=== PATIENT | male | born 1970 | race African-American/Black ===

== ENCOUNTER 2017-02-12 08:28 | Inpatient (IN) | payer OTHER ==
[2017-02-12 11:00] VITALS: BMI 23.7
--- NOTE | 2017-02-12 12:47 | HP ---
CIWA Score - CIWA Score Nausea/Vomitin Muscle Tremors: 3 Anxiety: 3 Agitation: 2 Paroxysmal Sweats: 1-Minimal Palms Moist Orientation: 0-Oriented Tacttile Disturbances: 2-Mild Itch/Numbness/Burn Auditory Disturbances: 2-Mild Harshness/Frighten Visual Disturbances: 2-Mild Sensitivity Headache: 2-Mild CIWA-Ar Total Score: 20 Admission ROS BHS - HPI Chief Complaint: i need help to stop drinking alcohol and cocaine Allergies/Adverse Reactions: Allergies Allergy/AdvReac Type Severity Reaction Status Date / Time No Known Allergies Allergy Verified 02/12/17 10:46 History of Present Illness: THIS 46 YEARS OLD MALE WITH ALCOHOL AND COCAINE DEPENDENCE Exam Limitations: No Limitations - Ebola screening Have you traveled outside of the country in the last 21 days: No Have you had contact with anyone from an Ebola affected area: No Have you been sick,other than usual withdrawal symptoms: No - Review of Systems Constitutional: Loss of Appetite, Malaise, Night Sweats, Changes in sleep, Weakness, Unintentional Wgt. Loss EENT: reports: Nose Congestion Respiratory: reports: No Symptoms reported Cardiac: reports: Palpitations GI: reports: Diarrhea, Nausea, Vomiting, Abdominal cramping : reports: No Symptoms Reported Musculoskeletal: reports: Back Pain, Muscle Pain Integumentary: reports: Dryness Neuro: reports: Headache, Tremors Endocrine: reports: No Symptoms Reported Hematology: reports: No Symptoms Reported Psychiatric: reports: Judgement Intact, Mood/Affect Appropiate, Orientated x3, Depressed Patient History - Patient Medical History Hx Anemia: No Hx Asthma: No Hx Chronic Obstructive Pulmonary Disease (COPD): No Hx Cancer: No Hx Cardiac Disorders: No Hx Congestive Heart Failure: No Hx Hypertension: No Hx Hypercholesterolemia: No Hx Pacemaker: No Hx Seizures: No Hx Dementia: No Hx Diabetes: No Hx Gastrointestinal Disorders: Yes (acid reflux) Hx Liver Disease: No Hx Genitourinary Disorders: No Hx Sexually Transmitted Disorders: No Hx Renal Disease (ESRD): No Hx Thyroid Disease: No Hx Human Immunodeficiency Virus (HIV): No (LAST 2006 NEGATIVE) Hx Hepatitis C: No Hx Depression: Yes (NO MEDICATION) Hx Suicide Attempt: No Hx Bipolar Disorder: No Hx Schizophrenia: No Other Medical History: NO SUICIDAL,NO HOMICIDAL - Patient Surgical History Past Surgical History: Yes Hx Neurologic Surgery: No Hx Cataract Extraction: No Hx Cardiac Surgery: No Hx Lung Surgery: No Hx Breast Surgery: No Hx Breast Biopsy: No Hx Abdominal Surgery: No Hx Appendectomy: No Hx Cholecystectomy: No Hx Genitourinary Surgery: No Hx Section: No Hx Orthopedic Surgery: No Other Surgical History: partial amputation, left middle finger AT AGE 14 Anesthesia Reaction: No - PPD History Previous Implant?: Yes Documented Results: Negative w/o proof Implanted On Prior [facility] Admission?: No PPD to be Administered?: Yes - Smoking Cessation Smoking history: Current every day smoker Have you smoked in the past 12 months: Yes Aproximately how many cigarettes per day: 10 Hx Chewing Tobacco Use: No Initiated information on smoking cessation: Yes 'Breaking Loose' booklet given: 02/12/17 - Substance & Tx. History Hx Alcohol Use: Yes Hx Substance Use: Yes Substance Use Type: Alcohol, Cocaine Hx Substance Use Treatment: Yes (DID NOT RECALL) - Substances Abused Crack Route: Smoking Frequency: 1-3 times last 30 days Amount used: $20 Age of first use: 17 Date of Last Use: 02/11/17 Alcohol-cognac/beer Route: Oral Frequency: Daily Amount used: 2 pts./1 case Age of first use: 17 Date of Last Use: 02/12/17 Family Disease History - Family Disease History Family Disease History: Other: Father (ALCOHOL), Mother (ALCOHOL,DECESED) Admission Physical Exam S - Vital Signs Vital Signs: Vital Signs - 24 hr 02/12/17 10:57 Temperature 96.4 F L Pulse Rate 71 Respiratory 20 Rate Blood Pressure 109/72 - Physical General Appearance: Yes: Moderate Distress, Tremorous, Irritable, Sweating, Anxious HEENTM: Yes: Normal ENT Inspection, Normocephalic, JUSTIN Respiratory: Yes: Lungs Clear, Normal Breath Sounds, No Respiratory Distress Neck: Yes: Within Normal Limits, Supple, Trachea in good position Breast: Yes: Within Normal Limits Cardiology: Yes: Within Normal Limits, Regular Rhythm, Regular Rate, S1, S2 Abdominal: Yes: Within Normal Limits, Normal Bowel Sounds, Non Tender, Flat, Soft Genitourinary: Yes: Within Normal Limits Back: Yes: Muscle Spasm Musculoskeletal: Yes: Back pain, Muscle Pain Extremities: Yes: Normal Range of Motion, Tremors Neurological: Yes: coordinator of online programs II-XII NML intact, Fully Oriented, Alert, Motor Strength 5/5 Integumentary: Yes: Dry Lymphatic: Yes: Within Normal Limits - Diagnostic (1) Alcohol dependence with uncomplicated withdrawal Current Visit: Yes Status: Acute (2) Depression Current Visit: Yes Status: Acute (3) Nicotine dependence Current Visit: Yes Status: Acute (4) Weight loss Current Visit: Yes Status: Acute Cleared for Admission [facility] - Detox or Rehab [facility] Level of Care: Medically Managed Detox Regimen/Protocol: Librium S Breath Alcohol Content Breath Alcohol Content: 0 Urine Drug Screen - Results Drug Screen Negative: No Urine Drug Screen Results: GUSTAVO-Cocaine
[2017-02-12] MEDS ORDERED: MENTHOL/PHENOL 1 EACH UD MM PRN (12:58)
[2017-02-12] MEDS ORDERED: chlordiazePOXIDE HCL 25 MG CAPSULE PO ONE (12:58)
[2017-02-12] MEDS ORDERED: hydrOXYzine PAMOATE 50 MG CAPSULE (FP) PO PRN (12:58)
[2017-02-12] MEDS ORDERED: chlordiazePOXIDE HCL 25 MG CAPSULE PO PRN (12:58)
[2017-02-12] MEDS ORDERED: ACETAMINOPHEN 325 MG TABLET (FP) PO PRN (12:58)
[2017-02-12] MEDS ORDERED: LOPERAMIDE HCL 2 MG CAPSULE PO PRN (12:58)
[2017-02-12] MEDS ORDERED: diphenhydrAMINE HCL 50 MG CAPSULE PO PRN (12:58)
[2017-02-12] MEDS ORDERED: IBUPROFEN 400 MG TABLET (FP) PO PRN (12:58)
[2017-02-12] MEDS ORDERED: MAGNESIUM CITRATE 300 ML BOTTLE PO PRN (12:58)
[2017-02-12] MEDS ORDERED: MAGNESIUM HYDROX 2400MG/30ML ORAL SUSPENSION 30 ML CUP PO PRN (12:58)
[2017-02-12] MEDS ORDERED: P-EPHED 60MG/TRIPROLIDI 2.5MG TABLET PO PRN (12:58)
[2017-02-12] MEDS ORDERED: guaiFENesin/D-METHORPHAN HB 10 ML UNIT-DOSE CUPS PO PRN (12:58)
[2017-02-12] MEDS ORDERED: NICOTINE POLACRILEX 2 MG GUM BC PRN (12:58)
[2017-02-12] MEDS ORDERED: MAG HYDROX/AL HYDROX/SIMETH 30 ML UNIT-DOSE CUP PO PRN (12:58)
[2017-02-12] MEDS: NICOTINE 21 MG/24 HOURS TOPICAL PATCH TD SCH (14:58)
[2017-02-12 16:27] LABS: URINE APPEARANCE CLEAR; URINE BILIRUBIN NEGATIVE (NEGATIVE); URINE BLOOD NEGATIVE (NEGATIVE); URINE COLOR YELLOW; URINE GLUCOSE (UA) NEGATIVE (NEGATIVE); URINE KETONE NEGATIVE (NEGATIVE); URINE LEUK ESTERASE NEGATIVE (NEGATIVE); URINE NITRITE NEGATIVE (NEGATIVE); URINE PROTEIN NEGATIVE (NEGATIVE); URINE UROBILINOGEN NEGATIVE E.U./dl (0.2-1.0)
[2017-02-12] MEDS: chlordiazePOXIDE HCL 25 MG CAPSULE PO SCH ×2 (17:53→22:19)
[2017-02-12] MEDS: THIAMINE HCL 100 MG TABLET (FP) PO SCH (22:18)
[2017-02-13] MEDS: chlordiazePOXIDE HCL 25 MG CAPSULE PO SCH ×4 (05:59→22:10)
--- NOTE | 2017-02-13 10:01 | PN ---
[facility] CIWA - CIWA Score Nausea/Vomitin-No Nausea/No Vomiting Muscle Tremors: 4-Moderate,w/Arms Extend Anxiety: 4-Mod. Anxious/Guarded Agitation: 3 Paroxysmal Sweats: 1-Minimal Palms Moist Orientation: 0-Oriented Tacttile Disturbances: 3-Moderate Itch/Numb/Burn Auditory Disturbances: 0-None Visual Disturbances: 0-None Headache: 0-None Present CIWA-Ar Total Score: 15 BHS Progress Note (SOAP) Subjective: ANXIETY,TREMORS, SWEATS. Objective: 02/13/17 09:53 Vital Signs Temperature 97.0 F L 02/13/17 06:41 Pulse Rate 78 02/13/17 06:41 Respiratory Rate 16 02/13/17 06:41 Blood Pressure 96/66 02/13/17 06:41 O2 Sat by Pulse Oximetry (%) Laboratory Last Values Urine Color Yellow 02/12/17 15:00 Urine Appearance Clear 02/12/17 15:00 Urine pH 5.0 (5.0-8.0) 02/12/17 15:00 Ur Specific [place] 1.025 (1.005-1.025) 02/12/17 15:00 Urine Protein Negative (NEGATIVE) 02/12/17 15:00 Urine Glucose (UA) Negative (NEGATIVE) 02/12/17 15:00 Urine Ketones Negative (NEGATIVE) 02/12/17 15:00 Urine Blood Negative (NEGATIVE) 02/12/17 15:00 Urine Nitrite Negative (NEGATIVE) 02/12/17 15:00 Urine Bilirubin Negative (NEGATIVE) 02/12/17 15:00 Urine Urobilinogen Negative E.U./dl (0.2-1.0) 02/12/17 15:00 Ur Leukocyte Esterase Negative (NEGATIVE) 02/12/17 15:00 Assessment: 02/13/17 10:01 WITHDRAWAL SX Plan: CONTINUE DETOX
[2017-02-13 10:06] LABS: MCH 33.5 pg (25.7-33.7); MCHC 33.5 g/dl (32.0-35.9); MEAN CELL VOLUME 99.8 fl (80-96); MEAN PLT VOLUME 9.6 fl (7.5-11.1); PLATELET COUNT 171 K/MM3 (134-434); RDW 13.5 % (11.9-15.9); WHITE BLOOD COUNT 4.6 K/mm3 (4.0-10.0)
[2017-02-13] MEDS: PRENATAL VITAMINS W/ FOLIC ACID TABLET (FP) PO SCH (10:18)
[2017-02-13] MEDS: NICOTINE 21 MG/24 HOURS TOPICAL PATCH TD SCH (10:18)
[2017-02-13 10:49] LABS: ALBUMIN 4.3 g/dl (3.4-5.0); ALK PHOS 51 U/L (45-117); ANION GAP 8 (8-16); BILIRUBIN,TOTAL 0.4 mg/dL (0.2-1.0); CALCIUM 10.3 mg/dL (8.5-10.1); CO2 31 mmol/L (21-32); COCKROFT - GAULT 106.52; CREATININE 1.1 mg/dL (0.7-1.3); GLUCOSE,RANDOM 83 mg/dL (74-106); SGOT/AST 26 U/L (15-37); SGPT/ALT 26 U/L (12-78); TOT PROT 7.5 g/dl (6.4-8.2)
--- NOTE | 2017-02-13 11:40 | EKG ---
Test Reason : Blood Pressure : / mmHG Vent. Rate : 063 BPM Atrial Rate : 063 BPM P-R Int : 154 ms QRS Dur : 088 ms QT Int : 394 ms P-R-T Axes : 063 057 042 degrees QTc Int : 403 ms NORMAL SINUS RHYTHM NORMAL ECG NO PREVIOUS ECGS AVAILABLE Confirmed by MONICA MICHEL, EMMA ([id number]) on 02/13/2017 11:40:29 AM Referred By: Confirmed By:EMMA ANDERSON MD
--- NOTE | 2017-02-13 12:58 | CONSULT ---
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 Substance Abuse History: - Smoking Cessation. Smoking history: Current every day smoker. Have you smoked in the past 12 months: Yes. Aproximately how many cigarettes per day: 10. Hx Chewing Tobacco Use: No. Initiated information on smoking cessation: Yes. 'Breaking Loose' booklet given: 02/12/17. - Substance & Tx. History. Hx Alcohol Use: Yes. Hx Substance Use: Yes. Substance Use Type : Alcohol, Cocaine. Hx Substance Use Treatment: Yes (DID NOT RECALL). - Substances Abused. Crack. Route: Smoking. Frequency: 1-3 times last 30 days. Amount used: $20. Age of first use: 17. Date of Last Use: 02/11/17. * * Alcohol-cognac/beer. Route: Oral. Frequency: Daily. Amount used: 2 pts./1 case. Age of first use: 17. Date of Last Use: 02/12/17. Confirmed by patient. Medical History: GERD and a history of orthosurgery at age 14 (partial amputation, of middle finger of left hand). 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 Physical/Sexual Abuse/Trauma History: Patient denies. Additional Comment: Urine Drug Screen Results: GUSTAVO-Cocaine.Noted. Mental Status Exam - Mental Status Exam Alert and Oriented to: Time, Place, Person Cognitive Function: Good Patient Appearance: Well Groomed Mood: Hopeful, Euthymic Affect: Appropriate, Normal Range Patient Behavior: Appropriate, Cooperative Speech Pattern: Clear Voice Loudness: Normal Thought Process: Goal Oriented Thought Disorder: Not Present Hallucinations: Denies Suicidal Ideation: Denies Homicidal Ideation: Denies Insight/Judgement: Poor Sleep: Poorly, Difficulty falling asleep Appetite: Good Muscle strength/Tone: Normal Gait/Station: Normal Psychiatric Findings - Problem List ([place] 1, 2,3) (1) Alcohol dependence with uncomplicated withdrawal Current Visit: Yes Status: Acute (2) Nicotine dependence Current Visit: Yes Status: Acute (3) Cocaine dependence Current Visit: Yes Status: Acute (4) Substance induced mood disorder Current Visit: Yes Status: Acute (5) Insomnia Current Visit: Yes Status: Acute - Initial Treatment Plan Initial Treatment Plan: Psychoeducation.Detoxification.Seroquel 100 mg po hs.Side effects/benefits discussed with patient.He is in agreement with this careplan.Observation.
[2017-02-13] MEDS: THIAMINE HCL 100 MG TABLET (FP) PO SCH (22:10)
[2017-02-13] MEDS: QUEtiapine FUMARATE 100 MG TABLET (FP) PO SCH (22:10)
[2017-02-14] MEDS: chlordiazePOXIDE HCL 25 MG CAPSULE PO SCH ×2 (05:48→10:09)
[2017-02-14] MEDS: PRENATAL VITAMINS W/ FOLIC ACID TABLET (FP) PO SCH (10:09)
[2017-02-14] MEDS: NICOTINE 21 MG/24 HOURS TOPICAL PATCH TD SCH (10:09)
--- NOTE | 2017-02-14 10:41 | PN ---
[facility] CIWA - CIWA Score Nausea/Vomitin-No Nausea/No Vomiting Muscle Tremors: 4-Moderate,w/Arms Extend Anxiety: 4-Mod. Anxious/Guarded Agitation: 4-Moderately Restless Paroxysmal Sweats: 1-Minimal Palms Moist Orientation: 0-Oriented Tacttile Disturbances: 3-Moderate Itch/Numb/Burn Auditory Disturbances: 0-None Visual Disturbances: 0-None Headache: 0-None Present CIWA-Ar Total Score: 16 BHS Progress Note (SOAP) Subjective: SLIGHT ANXIETY,TREMORS, SWEATS. Objective: 02/14/17 10:40 Vital Signs Temperature 95.8 F L 02/14/17 10:18 Pulse Rate 78 02/14/17 10:18 Respiratory Rate 18 02/14/17 10:18 Blood Pressure 106/71 02/14/17 10:18 O2 Sat by Pulse Oximetry (%) Laboratory Last Values WBC 4.6 K/mm3 (4.0-10.0) 02/13/17 06:00 RBC 4.48 M/mm3 (4.00-5.60) 02/13/17 06:00 Hgb 15.0 GM/dL (11.7-16.9) 02/13/17 06:00 Hct 44.7 % (35.4-49) 02/13/17 06:00 MCV 99.8 fl (80-96) H 02/13/17 06:00 MCHC 33.5 g/dl (32.0-35.9) 02/13/17 06:00 RDW 13.5 % (11.9-15.9) 02/13/17 06:00 Plt Count 171 K/MM3 (134-434) 02/13/17 06:00 MPV 9.6 fl (7.5-11.1) 02/13/17 06:00 Sodium 142 mmol/L (136-145) 02/13/17 06:00 Potassium 4.4 mmol/L (3.5-5.1) 02/13/17 06:00 Chloride 103 mmol/L (98-107) 02/13/17 06:00 Carbon Dioxide 31 mmol/L (21-32) 02/13/17 06:00 Anion Gap 8 (8-16) 02/13/17 06:00 BUN 11 mg/dL (7-18) 02/13/17 06:00 Creatinine 1.1 mg/dL (0.7-1.3) 02/13/17 06:00 Creat Clearance w eGFR > 60 (>60) 02/13/17 06:00 Random Glucose 83 mg/dL (74-106) 02/13/17 06:00 Calcium 10.3 mg/dL (8.5-10.1) H 02/13/17 06:00 Total Bilirubin 0.4 mg/dL (0.2-1.0) 02/13/17 06:00 AST 26 U/L (15-37) 02/13/17 06:00 ALT 26 U/L (12-78) 02/13/17 06:00 Alkaline Phosphatase 51 U/L (45-117) 02/13/17 06:00 Total Protein 7.5 g/dl (6.4-8.2) 02/13/17 06:00 Albumin 4.3 g/dl (3.4-5.0) 02/13/17 06:00 Urine Color Yellow 02/12/17 15:00 Urine Appearance Clear 02/12/17 15:00 Urine pH 5.0 (5.0-8.0) 02/12/17 15:00 Ur Specific [place] 1.025 (1.005-1.025) 02/12/17 15:00 Urine Protein Negative (NEGATIVE) 02/12/17 15:00 Urine Glucose (UA) Negative (NEGATIVE) 02/12/17 15:00 Urine Ketones Negative (NEGATIVE) 02/12/17 15:00 Urine Blood Negative (NEGATIVE) 02/12/17 15:00 Urine Nitrite Negative (NEGATIVE) 02/12/17 15:00 Urine Bilirubin Negative (NEGATIVE) 02/12/17 15:00 Urine Urobilinogen Negative E.U./dl (0.2-1.0) 02/12/17 15:00 Ur Leukocyte Esterase Negative (NEGATIVE) 02/12/17 15:00 RPR Titer Nonreactive (NONREACTIVE) 02/13/17 06:00 Assessment: 02/14/17 10:40 WITHDRAWAL SX Plan: CONTINUE DETOX
[2017-02-14] MEDS: chlordiazePOXIDE 5 MG CAPSULE PO SCH ×2 (17:18→22:14)
[2017-02-14] MEDS: QUEtiapine FUMARATE 100 MG TABLET (FP) PO SCH (22:15)
[2017-02-14] MEDS: THIAMINE HCL 100 MG TABLET (FP) PO SCH (22:15)
[2017-02-15] MEDS: chlordiazePOXIDE 5 MG CAPSULE PO SCH ×2 (05:31→10:06)
[2017-02-15] MEDS: NICOTINE 21 MG/24 HOURS TOPICAL PATCH TD SCH (10:06)
[2017-02-15] MEDS: PRENATAL VITAMINS W/ FOLIC ACID TABLET (FP) PO SCH (10:07)
--- NOTE | 2017-02-15 14:37 | PN ---
BHS Progress Note (SOAP) Subjective: Sweating,interrupted sleep,restless. Objective: 02/15/17 14:36 Vital Signs - 8 hr 02/15/17 10:28 Temperature 97.3 F L Pulse Rate 79 Respiratory 18 Rate Blood Pressure 107/72 Laboratory Last Values WBC 4.6 K/mm3 (4.0-10.0) 02/13/17 06:00 RBC 4.48 M/mm3 (4.00-5.60) 02/13/17 06:00 Hgb 15.0 GM/dL (11.7-16.9) 02/13/17 06:00 Hct 44.7 % (35.4-49) 02/13/17 06:00 MCV 99.8 fl (80-96) H 02/13/17 06:00 MCHC 33.5 g/dl (32.0-35.9) 02/13/17 06:00 RDW 13.5 % (11.9-15.9) 02/13/17 06:00 Plt Count 171 K/MM3 (134-434) 02/13/17 06:00 MPV 9.6 fl (7.5-11.1) 02/13/17 06:00 Sodium 142 mmol/L (136-145) 02/13/17 06:00 Potassium 4.4 mmol/L (3.5-5.1) 02/13/17 06:00 Chloride 103 mmol/L (98-107) 02/13/17 06:00 Carbon Dioxide 31 mmol/L (21-32) 02/13/17 06:00 Anion Gap 8 (8-16) 02/13/17 06:00 BUN 11 mg/dL (7-18) 02/13/17 06:00 Creatinine 1.1 mg/dL (0.7-1.3) 02/13/17 06:00 Creat Clearance w eGFR > 60 (>60) 02/13/17 06:00 Random Glucose 83 mg/dL (74-106) 02/13/17 06:00 Calcium 10.3 mg/dL (8.5-10.1) H 02/13/17 06:00 Total Bilirubin 0.4 mg/dL (0.2-1.0) 02/13/17 06:00 AST 26 U/L (15-37) 02/13/17 06:00 ALT 26 U/L (12-78) 02/13/17 06:00 Alkaline Phosphatase 51 U/L (45-117) 02/13/17 06:00 Total Protein 7.5 g/dl (6.4-8.2) 02/13/17 06:00 Albumin 4.3 g/dl (3.4-5.0) 02/13/17 06:00 Urine Color Yellow 02/12/17 15:00 Urine Appearance Clear 02/12/17 15:00 Urine pH 5.0 (5.0-8.0) 02/12/17 15:00 Ur Specific [place] 1.025 (1.005-1.025) 02/12/17 15:00 Urine Protein Negative (NEGATIVE) 02/12/17 15:00 Urine Glucose (UA) Negative (NEGATIVE) 02/12/17 15:00 Urine Ketones Negative (NEGATIVE) 02/12/17 15:00 Urine Blood Negative (NEGATIVE) 02/12/17 15:00 Urine Nitrite Negative (NEGATIVE) 02/12/17 15:00 Urine Bilirubin Negative (NEGATIVE) 02/12/17 15:00 Urine Urobilinogen Negative E.U./dl (0.2-1.0) 02/12/17 15:00 Ur Leukocyte Esterase Negative (NEGATIVE) 02/12/17 15:00 RPR Titer Nonreactive (NONREACTIVE) 02/13/17 06:00 labs noted Assessment: 02/15/17 14:36 Withdrawal sx. Plan: Continue detox
[2017-02-15] MEDS: chlordiazePOXIDE HCL 10 MG CAPSULE PO SCH ×2 (17:23→22:20)
[2017-02-15] MEDS: QUEtiapine FUMARATE 100 MG TABLET (FP) PO SCH (22:20)
[2017-02-15] MEDS: THIAMINE HCL 100 MG TABLET (FP) PO SCH (22:20)
[2017-02-16] MEDS: chlordiazePOXIDE HCL 10 MG CAPSULE PO SCH (05:30)
[2017-02-16 06:35] VITALS: BP 108/67; PULSE 91; TEMP 98
--- NOTE | 2017-02-16 14:01 | DS ---
[facility] Detox Discharge Summary Admission Date: 02/12/17 Discharge Date: 02/16/17 - History Present History: Alcohol Dependence, Cocaine Dependence Additional Comments: ADVISED PATIENT TO FOLLOW-UP WITH [facility] AFTER DISCHARGE FROM DETOX FOR GENERAL MEDICAL ASSESSMENT. Pertinent Past History: Depression. - Physical Exam Results Vital Signs: Vital Signs Temperature 98 F 02/16/17 06:34 Pulse Rate 91 H 02/16/17 06:34 Respiratory Rate 18 02/16/17 06:34 Blood Pressure 108/67 02/16/17 06:34 O2 Sat by Pulse Oximetry (%) Pertinent Admission Physical Exam Findings: WITHDRAWAL SYMPTOMS. Laboratory Tests 02/12/17 02/13/17 02/13/17 15:00 06:00 06:00 WBC 4.6 RBC 4.48 Hgb 15.0 Hct 44.7 MCV 99.8 H MCHC 33.5 RDW 13.5 Plt Count 171 MPV 9.6 Sodium 142 Potassium 4.4 Chloride 103 Carbon Dioxide 31 Anion Gap 8 BUN 11 Creatinine 1.1 Creat Clearance w eGFR > 60 Random Glucose 83 Calcium 10.3 H Total Bilirubin 0.4 AST 26 ALT 26 Alkaline Phosphatase 51 Total Protein 7.5 Albumin 4.3 Urine Color Yellow Urine Appearance Clear Urine pH 5.0 Ur Specific [place] 1.025 Urine Protein Negative Urine Glucose (UA) Negative Urine Ketones Negative Urine Blood Negative Urine Nitrite Negative Urine Bilirubin Negative Urine Urobilinogen Negative Ur Leukocyte Esterase Negative RPR Titer 02/13/17 06:00 WBC RBC Hgb Hct MCV MCHC RDW Plt Count MPV Sodium Potassium Chloride Carbon Dioxide Anion Gap BUN Creatinine Creat Clearance w eGFR Random Glucose Calcium Total Bilirubin AST ALT Alkaline Phosphatase Total Protein Albumin Urine Color Urine Appearance Urine pH Ur Specific [place] Urine Protein Urine Glucose (UA) Urine Ketones Urine Blood Urine Nitrite Urine Bilirubin Urine Urobilinogen Ur Leukocyte Esterase RPR Titer Nonreactive LABS NOTED. - Treatment Hospital Course: Detox Protocol Followed, Detoxed Safely, Responded well, Discharged Condition Good Patient has Accepted a Rehab Referral to: PT. ELECTING TO GO HOME. 12-STEP/AA OUTPATIENT PROGRAMS RECOMMENDED. - Medication Discharge Medications: Ambulatory Orders Quetiapine Fumarate [Seroquel] 100 mg PO HS #30 tablet 02/13/17 - Diagnosis (1) Depression Status: Acute Qualifiers: Depression Type: unspecified Qualified Code(s): F32.9 - Major depressive disorder, single episode, unspecified (2) Insomnia Status: Acute Qualifiers: Insomnia type: unspecified Qualified Code(s): G47.00 - Insomnia, unspecified (3) Nicotine dependence Status: Chronic Qualifiers: Nicotine product type: cigarettes Substance use status: uncomplicated Qualified Code(s): F17.210 - Nicotine dependence, cigarettes, uncomplicated (4) Substance induced mood disorder Status: Acute (5) Weight loss Status: Acute (6) Alcohol dependence with uncomplicated withdrawal Status: Acute (7) Cocaine dependence Status: Acute Qualifiers: Substance use status: uncomplicated Qualified Code(s): F14.20 - Cocaine dependence, uncomplicated - AMA Did Patient Leave Against Medical Advice: No
== END 2017-02-16 09:00 | disposition home or self-care (01) | DRG 774 ==
LOC: YASAS 08:28 → Y3N 11:50
PROVIDERS: ADMIT Internal Medicine; ATTEND Internal Medicine
PROC: HZ2ZZZZ Detoxification Services for Substance Abuse Treatment (ICD-10-PCS; principal; 2017-02-12)
DX: F10.230 Alcohol dependence with withdrawal, uncomplicated (principal); F14.20 Cocaine dependence, uncomplicated; F17.210 Nicotine dependence, cigarettes, uncomplicated; F19.24 Other psychoactive substance dependence with psychoactive substance-induced mood disorder; F32.9 Major depressive disorder, single episode, unspecified; K21.9 Gastro-esophageal reflux disease without esophagitis; G47.00 Insomnia, unspecified; Z87.898 Personal history of other specified conditions; Z89.022 Acquired absence of left finger(s)
CPT/HCPCS: 36415; 80053; 81003; 85027; 86593; 93005; 93010

== ENCOUNTER 2017-04-05 23:27 | Inpatient (IN) | payer OTHER ==
--- NOTE | 2017-04-05 23:35 | HP ---
CIWA Score - CIWA Score Nausea/Vomitin Muscle Tremors: 3 Anxiety: 3 Agitation: 3 Paroxysmal Sweats: 2 Orientation: 0-Oriented Tacttile Disturbances: 2-Mild Itch/Numbness/Burn Auditory Disturbances: 2-Mild Harshness/Frighten Visual Disturbances: 2-Mild Sensitivity Headache: 2-Mild CIWA-Ar Total Score: 22 Admission ROS BHS - HPI Chief Complaint: i am tired of drinking and using drug Allergies/Adverse Reactions: Allergies Allergy/AdvReac Type Severity Reaction Status Date / Time No Known Allergies Allergy Verified 04/05/17 23:37 History of Present Illness: this 47 yers old male with alcohol and cocaine dependence,seeking admission in detox,last treatment 02/12/17 to 02/16/17 anxiety and depression nicotine dependence syncope alcohol related no significant period of sobriety Exam Limitations: No Limitations - Ebola screening Have you traveled outside of the country in the last 21 days: No (N) Have you had contact with anyone from an Ebola affected area: No Do you have a fever: No - Review of Systems Constitutional: Chills, Loss of Appetite, Malaise, Night Sweats, Changes in sleep, Weakness EENT: reports: Tearing, Nose Congestion Respiratory: reports: No Symptoms reported Cardiac: reports: No Symptoms Reported GI: reports: Diarrhea, Nausea, Vomiting, Abdominal cramping : reports: No Symptoms Reported Integumentary: reports: Dryness Neuro: reports: Headache, Tremors Endocrine: reports: No Symptoms Reported Hematology: reports: No Symptoms Reported Psychiatric: reports: Anxious, Depressed Other Systems: Reviewed and Negative Patient History - Patient Medical History Hx Anemia: No Hx Asthma: No Hx Chronic Obstructive Pulmonary Disease (COPD): No Hx Cancer: No Hx Cardiac Disorders: No Hx Congestive Heart Failure: No Hx Hypertension: No Hx Hypercholesterolemia: No Hx Pacemaker: No Hx Seizures: No Hx Dementia: No Hx Diabetes: No Hx Gastrointestinal Disorders: Yes (acid reflux) Hx Liver Disease: No Hx Genitourinary Disorders: No Hx Sexually Transmitted Disorders: No Hx Renal Disease (ESRD): No Hx Thyroid Disease: No Hx Human Immunodeficiency Virus (HIV): No (02/23 negative last tested) Hx Hepatitis C: No Hx Depression: Yes (NO MEDICATION) Hx Suicide Attempt: Yes (over dose at age of 29) Hx Bipolar Disorder: No Hx Schizophrenia: No Other Medical History: no suicidal,no homicidal - Patient Surgical History Past Surgical History: Yes Hx Neurologic Surgery: No Hx Cataract Extraction: No Hx Cardiac Surgery: No Hx Lung Surgery: No Hx Breast Surgery: No Hx Breast Biopsy: No Hx Abdominal Surgery: No Hx Appendectomy: No Hx Cholecystectomy: No Hx Genitourinary Surgery: No Hx Section: No Hx Orthopedic Surgery: No Other Surgical History: partial amputation, left middle finger AT AGE 14 Anesthesia Reaction: No - PPD History Previous Implant?: Yes Documented Results: Negative w/proof Implanted On Prior [facility] Admission?: Yes Date: 02/14/17 Results: 0 mm PPD to be Administered?: No - Smoking Cessation Smoking history: Current every day smoker Have you smoked in the past 12 months: Yes Aproximately how many cigarettes per day: 10 Hx Chewing Tobacco Use: No Initiated information on smoking cessation: Yes 'Breaking Loose' booklet given: 04/05/17 - Substance & Tx. History Hx Alcohol Use: Yes Hx Substance Use: Yes Substance Use Type: Alcohol, Cocaine Hx Substance Use Treatment: Yes ([facility] to 02/16/17) - Substances Abused Alcohol Route: Oral Frequency: Daily Amount used: 1pint of moose/1 case of 12 ozs of beer Age of first use: 17 Date of Last Use: 04/05/17 Cocaine Route: Inhalation Frequency: 1-3 times last 30 days Amount used: 100$ Age of first use: 18 Date of Last Use: 04/05/17 Family Disease History - Family Disease History Family Disease History: Other: Father (ALCOHOL), Mother (ALCOHOL,DECESED) Admission Physical Exam [facility] - Vital Signs Vital Signs: Vital Signs Temperature 97.8 F 04/05/17 23:40 Pulse Rate 95 H 04/05/17 23:40 Respiratory Rate 18 04/05/17 23:40 Blood Pressure 134/81 04/05/17 23:40 O2 Sat by Pulse Oximetry (%) - Physical General Appearance: Yes: Moderate Distress, Tremorous, Irritable, Sweating, Anxious HEENTM: Yes: Normal ENT Inspection, Normocephalic, JUSTIN, Pharynx Normal Respiratory: Yes: Lungs Clear, Normal Breath Sounds, No Respiratory Distress Neck: Yes: Supple, Trachea in good position Breast: Yes: Within Normal Limits Cardiology: Yes: Within Normal Limits, Regular Rhythm, Regular Rate, S1, S2 Abdominal: Yes: Normal Bowel Sounds, Non Tender, Soft Genitourinary: Yes: Within Normal Limits Back: Yes: Muscle Spasm Musculoskeletal: Yes: Back pain, Muscle Pain Extremities: Yes: Normal Range of Motion, Tremors Neurological: Yes: groover runner II-XII NML intact, Fully Oriented, Alert, Motor Strength 5/5 Integumentary: Yes: Dry Lymphatic: Yes: Within Normal Limits - Diagnostic (1) Alcohol dependence with uncomplicated withdrawal Current Visit: No Status: Acute (2) Cocaine dependence Current Visit: No Status: Acute Qualifiers: Substance use status: uncomplicated Qualified Code(s): F14.20 - Cocaine dependence, uncomplicated (3) Depression Current Visit: No Status: Acute Qualifiers: Depression Type: unspecified Qualified Code(s): F32.9 - Major depressive disorder, single episode, unspecified (4) Insomnia Current Visit: No Status: Acute Qualifiers: Insomnia type: unspecified Qualified Code(s): G47.00 - Insomnia, unspecified (5) Weight loss Current Visit: No Status: Acute (6) Nicotine dependence Current Visit: No Status: Chronic Qualifiers: Nicotine product type: cigarettes Substance use status: uncomplicated Qualified Code(s): F17.210 - Nicotine dependence, cigarettes, uncomplicated Cleared for Admission [facility] - Detox or Rehab S Level of Care: Medically Managed Detox Regimen/Protocol: Librium S Breath Alcohol Content Breath Alcohol Content: 0
[2017-04-05 23:42] VITALS: BMI 23.7
[2017-04-06] MEDS ORDERED: chlordiazePOXIDE HCL 25 MG CAPSULE PO PRN
[2017-04-06] MEDS ORDERED: MAG HYDROX/AL HYDROX/SIMETH 30 ML UNIT-DOSE CUP PO PRN
[2017-04-06] MEDS ORDERED: MENTHOL/PHENOL 1 EACH UD MM PRN
[2017-04-06] MEDS ORDERED: LOPERAMIDE HCL 2 MG CAPSULE PO PRN
[2017-04-06] MEDS ORDERED: chlordiazePOXIDE HCL 25 MG CAPSULE PO ONE
[2017-04-06] MEDS ORDERED: P-EPHED 60MG/TRIPROLIDI 2.5MG TABLET PO PRN
[2017-04-06] MEDS ORDERED: ACETAMINOPHEN 325 MG TABLET (FP) PO PRN
[2017-04-06] MEDS ORDERED: guaiFENesin/D-METHORPHAN HB 10 ML UNIT-DOSE CUPS PO PRN
[2017-04-06] MEDS ORDERED: MAGNESIUM CITRATE 300 ML BOTTLE PO PRN
[2017-04-06] MEDS ORDERED: hydrOXYzine PAMOATE 50 MG CAPSULE (FP) PO PRN
[2017-04-06] MEDS ORDERED: MAGNESIUM HYDROX 2400MG/30ML ORAL SUSPENSION 30 ML CUP PO PRN
[2017-04-06] MEDS ORDERED: IBUPROFEN 400 MG TABLET (FP) PO PRN
[2017-04-06] MEDS: chlordiazePOXIDE HCL 25 MG CAPSULE PO SCH ×4 (05:21→22:23)
[2017-04-06] MEDS: PRENATAL VITAMINS W/ FOLIC ACID TABLET (FP) PO SCH (10:23)
[2017-04-06] MEDS: NICOTINE 21 MG/24 HOURS TOPICAL PATCH TD SCH (10:24)
[2017-04-06 10:33] LABS: MCH 33.7 pg (25.7-33.7); MCHC 33.9 g/dl (32.0-35.9); MEAN CELL VOLUME 99.4 fl (80-96); MEAN PLT VOLUME 8.7 fl (7.5-11.1); PLATELET COUNT 162 K/MM3 (134-434); RDW 13.5 % (11.9-15.9); WHITE BLOOD COUNT 4.1 K/mm3 (4.0-10.0)
[2017-04-06 10:49] LABS: ANION GAP 10 (8-16); CO2 27 mmol/L (21-32); GLUCOSE,RANDOM 76 mg/dL (74-106); SGOT/AST 29 U/L (15-37)
[2017-04-06 10:51] LABS: ALK PHOS 53 U/L (45-117); BILIRUBIN,TOTAL 0.8 mg/dL (0.2-1.0); CALCIUM 9.1 mg/dL (8.5-10.1); SGPT/ALT 27 U/L (12-78); TOT PROT 7.1 g/dl (6.4-8.2)
--- NOTE | 2017-04-06 11:43 | CONSULT ---
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 Substance Abuse History: Patient reports started cocaine at age of 17, he reports uses on weekend $110, drinking daily case of beer, smokes cigarettes 10 a day. Medical History: GERD, orthosurgery at age of 14. 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 He reports no history of psychiatric hospitalizations, no treatment, however states he has difficulty sleeping. Physical/Sexual Abuse/Trauma History: Patient denies. Mental Status Exam - Mental Status Exam Alert and Oriented to: Time, Place, Person Cognitive Function: Good Patient Appearance: Well Groomed Mood: Sad Affect: Appropriate, Mood Congruent, Normal Range Patient Behavior: Appropriate, Cooperative Speech Pattern: Clear, Appropriate Voice Loudness: Normal Thought Process: Intact, Goal Oriented Thought Disorder: Not Present Hallucinations: Denies Suicidal Ideation: Denies Homicidal Ideation: Denies Insight/Judgement: Fair Sleep: Fair Appetite: Fair Muscle strength/Tone: Normal Gait/Station: Normal Psychiatric Findings - Problem List ([place] 1, 2,3) (1) Insomnia Current Visit: No Status: Acute Qualifiers: Insomnia type: unspecified Qualified Code(s): G47.00 - Insomnia, unspecified (2) Substance induced mood disorder Current Visit: No Status: Acute - Initial Treatment Plan Initial Treatment Plan: Supportive therapy provided, ambien 10 mg po hs, continue detox. protocol
[2017-04-06 13:05] LABS: URINE APPEARANCE CLEAR; URINE BILIRUBIN NEGATIVE (NEGATIVE); URINE BLOOD NEGATIVE (NEGATIVE); URINE COLOR LTYELLOW; URINE GLUCOSE (UA) NEGATIVE (NEGATIVE); URINE KETONE NEGATIVE (NEGATIVE); URINE LEUK ESTERASE TRACE (NEGATIVE); URINE NITRITE NEGATIVE (NEGATIVE); URINE PROTEIN NEGATIVE (NEGATIVE); URINE UROBILINOGEN NEGATIVE mg/dL (0.2-1.0)
[2017-04-06 13:34] LABS: URINE MUCUS RARE; URINE WBC 1 /hpf (3-5)
--- NOTE | 2017-04-06 16:38 | PN ---
[facility] CIWA - CIWA Score Nausea/Vomitin-Mild Nausea/No Vomiting Muscle Tremors: 2 Anxiety: 3 Agitation: 2 Paroxysmal Sweats: 3 Orientation: 0-Oriented Tacttile Disturbances: 3-Moderate Itch/Numb/Burn Auditory Disturbances: 2-Mild Harshness/Frighten Visual Disturbances: 0-None Headache: 0-None Present CIWA-Ar Total Score: 16 BHS Progress Note (SOAP) Subjective: Interrupted Sleep, Lower Back Ache, Sweating. Objective: PT. A & O X 3, OBSERVED AMBULATING ON UNIT. NO ACUTE DISTRESS. 04/06/17 16:36 Vital Signs Temperature 96.5 F L 04/06/17 13:55 Pulse Rate 77 04/06/17 13:55 Respiratory Rate 19 04/06/17 13:55 Blood Pressure 114/76 04/06/17 13:55 O2 Sat by Pulse Oximetry (%) Laboratory Tests 04/06/17 04/06/17 04/06/17 08:00 08:00 08:00 WBC 4.1 RBC 4.29 Hgb 14.4 Hct 42.6 MCV 99.4 H MCH 33.7 MCHC 33.9 RDW 13.5 Plt Count 162 MPV 8.7 Sodium 140 Potassium 3.9 Chloride 103 Carbon Dioxide 27 Anion Gap 10 BUN 11 Creatinine 1.0 Creat Clearance w eGFR > 60 Random Glucose 76 Calcium 9.1 Total Bilirubin 0.8 D AST 29 ALT 27 Alkaline Phosphatase 53 Total Protein 7.1 Albumin 4.0 Urine Color Urine Appearance Urine pH Urine Protein Urine Glucose (UA) Urine Ketones Urine Blood Urine Nitrite Urine Bilirubin Urine Urobilinogen Ur Leukocyte Esterase Urine RBC Urine WBC Ur Epithelial Cells Urine Mucus RPR Titer Nonreactive 04/06/17 08:54 WBC RBC Hgb Hct MCV MCH MCHC RDW Plt Count MPV Sodium Potassium Chloride Carbon Dioxide Anion Gap BUN Creatinine Creat Clearance w eGFR Random Glucose Calcium Total Bilirubin AST ALT Alkaline Phosphatase Total Protein Albumin Urine Color Ltyellow Urine Appearance Clear Urine pH 6.0 Urine Protein Negative Urine Glucose (UA) Negative Urine Ketones Negative Urine Blood Negative Urine Nitrite Negative Urine Bilirubin Negative Urine Urobilinogen Negative Ur Leukocyte Esterase Trace Urine RBC None Urine WBC 1 Ur Epithelial Cells Rare Urine Mucus Rare RPR Titer LABS NOTED. Assessment: 04/06/17 16:36 WITHDRAWAL SYMPTOMS. Plan: CONTINUE DETOX.
[2017-04-06] MEDS: THIAMINE HCL 100 MG TABLET (FP) PO SCH (22:22)
[2017-04-06] MEDS: diphenhydrAMINE HCL 50 MG CAPSULE PO PRN (22:23)
[2017-04-07] MEDS: chlordiazePOXIDE HCL 25 MG CAPSULE PO SCH ×4 (05:32→22:10)
[2017-04-07] MEDS: PRENATAL VITAMINS W/ FOLIC ACID TABLET (FP) PO SCH (10:40)
[2017-04-07] MEDS: NICOTINE 21 MG/24 HOURS TOPICAL PATCH TD SCH (10:40)
--- NOTE | 2017-04-07 15:42 | PN ---
S CIWA - CIWA Score Nausea/Vomitin Muscle Tremors: None Anxiety: 4-Mod. Anxious/Guarded Agitation: 4-Moderately Restless Paroxysmal Sweats: No Perspiration Orientation: 0-Oriented Tacttile Disturbances: 0-None Auditory Disturbances: 0-None Visual Disturbances: 0-None Headache: 1-Very Mild CIWA-Ar Total Score: 12 BHS Progress Note (SOAP) Subjective: Anxious, restless, sweating, interrupted sleep Objective: 04/07/17 15:41 Last Vital Signs Temp Pulse Resp BP Pulse Ox 97.2 F L 71 18 103/72 04/07/17 13:59 04/07/17 13:59 04/07/17 13:59 04/07/17 13:59 Laboratory Tests 04/06/17 04/06/17 04/06/17 08:00 08:00 08:00 WBC 4.1 RBC 4.29 Hgb 14.4 Hct 42.6 MCV 99.4 H MCH 33.7 MCHC 33.9 RDW 13.5 Plt Count 162 MPV 8.7 Sodium 140 Potassium 3.9 Chloride 103 Carbon Dioxide 27 Anion Gap 10 BUN 11 Creatinine 1.0 Creat Clearance w eGFR > 60 Random Glucose 76 Calcium 9.1 Total Bilirubin 0.8 D AST 29 ALT 27 Alkaline Phosphatase 53 Total Protein 7.1 Albumin 4.0 Urine Color Urine Appearance Urine pH Ur Specific [place] Urine Protein Urine Glucose (UA) Urine Ketones Urine Blood Urine Nitrite Urine Bilirubin Urine Urobilinogen Ur Leukocyte Esterase Urine RBC Urine WBC Ur Epithelial Cells Urine Mucus RPR Titer Nonreactive 04/06/17 08:54 WBC RBC Hgb Hct MCV MCH MCHC RDW Plt Count MPV Sodium Potassium Chloride Carbon Dioxide Anion Gap BUN Creatinine Creat Clearance w eGFR Random Glucose Calcium Total Bilirubin AST ALT Alkaline Phosphatase Total Protein Albumin Urine Color Ltyellow Urine Appearance Clear Urine pH 6.0 Ur Specific [place] 1.015 Urine Protein Negative Urine Glucose (UA) Negative Urine Ketones Negative Urine Blood Negative Urine Nitrite Negative Urine Bilirubin Negative Urine Urobilinogen Negative Ur Leukocyte Esterase Trace Urine RBC None Urine WBC 1 Ur Epithelial Cells Rare Urine Mucus Rare RPR Titer Labs noted Assessment: 04/07/17 15:42 Withdrawal symptoms Plan: Continue detox
[2017-04-07] MEDS: THIAMINE HCL 100 MG TABLET (FP) PO SCH (22:10)
[2017-04-07] MEDS: diphenhydrAMINE HCL 50 MG CAPSULE PO PRN (22:10)
[2017-04-08] MEDS: chlordiazePOXIDE 5 MG CAPSULE PO SCH ×4 (05:36→22:20)
--- NOTE | 2017-04-08 09:59 | EKG ---
Test Reason : Blood Pressure : / mmHG Vent. Rate : 077 BPM Atrial Rate : 077 BPM P-R Int : 158 ms QRS Dur : 086 ms QT Int : 370 ms P-R-T Axes : 072 063 045 degrees QTc Int : 418 ms NORMAL SINUS RHYTHM NORMAL ECG WHEN COMPARED WITH ECG OF 12-FEB-2017 14:04, NO SIGNIFICANT CHANGE WAS FOUND Confirmed by SAUL CASTLE MD ([id number]) on 04/08/2017 9:58:55 AM Referred By: Confirmed By:SAUL CASTLE MD
[2017-04-08] MEDS: NICOTINE 21 MG/24 HOURS TOPICAL PATCH TD SCH (10:11)
[2017-04-08] MEDS: PRENATAL VITAMINS W/ FOLIC ACID TABLET (FP) PO SCH (10:11)
--- NOTE | 2017-04-08 14:51 | PN ---
BHS Progress Note (SOAP) Subjective: Sweating,interrupted sleep,restless Objective: 04/08/17 14:50 Vital Signs - 8 hr 04/08/17 04/08/17 09:29 13:28 Temperature 97.3 F L 96.8 F L Pulse Rate 68 68 Respiratory 16 18 Rate Blood Pressure 105/67 106/70 Laboratory Last Values WBC 4.1 K/mm3 (4.0-10.0) 04/06/17 08:00 RBC 4.29 M/mm3 (4.00-5.60) 04/06/17 08:00 Hgb 14.4 GM/dL (11.7-16.9) 04/06/17 08:00 Hct 42.6 % (35.4-49) 04/06/17 08:00 MCV 99.4 fl (80-96) H 04/06/17 08:00 MCH 33.7 pg (25.7-33.7) 04/06/17 08:00 MCHC 33.9 g/dl (32.0-35.9) 04/06/17 08:00 RDW 13.5 % (11.9-15.9) 04/06/17 08:00 Plt Count 162 K/MM3 (134-434) 04/06/17 08:00 MPV 8.7 fl (7.5-11.1) 04/06/17 08:00 Sodium 140 mmol/L (136-145) 04/06/17 08:00 Potassium 3.9 mmol/L (3.5-5.1) 04/06/17 08:00 Chloride 103 mmol/L (98-107) 04/06/17 08:00 Carbon Dioxide 27 mmol/L (21-32) 04/06/17 08:00 Anion Gap 10 (8-16) 04/06/17 08:00 BUN 11 mg/dL (7-18) 04/06/17 08:00 Creatinine 1.0 mg/dL (0.7-1.3) 04/06/17 08:00 Creat Clearance w eGFR > 60 (>60) 04/06/17 08:00 Random Glucose 76 mg/dL (74-106) 04/06/17 08:00 Calcium 9.1 mg/dL (8.5-10.1) 04/06/17 08:00 Total Bilirubin 0.8 mg/dL (0.2-1.0) D 04/06/17 08:00 AST 29 U/L (15-37) 04/06/17 08:00 ALT 27 U/L (12-78) 04/06/17 08:00 Alkaline Phosphatase 53 U/L (45-117) 04/06/17 08:00 Total Protein 7.1 g/dl (6.4-8.2) 04/06/17 08:00 Albumin 4.0 g/dl (3.4-5.0) 04/06/17 08:00 Urine Color Ltyellow 04/06/17 08:54 Urine Appearance Clear 04/06/17 08:54 Urine pH 6.0 (5.0-8.0) 04/06/17 08:54 Ur Specific [place] 1.015 (1.005-1.025) 04/06/17 08:54 Urine Protein Negative (NEGATIVE) 04/06/17 08:54 Urine Glucose (UA) Negative (NEGATIVE) 04/06/17 08:54 Urine Ketones Negative (NEGATIVE) 04/06/17 08:54 Urine Blood Negative (NEGATIVE) 04/06/17 08:54 Urine Nitrite Negative (NEGATIVE) 04/06/17 08:54 Urine Bilirubin Negative (NEGATIVE) 04/06/17 08:54 Urine Urobilinogen Negative mg/dL (0.2-1.0) 04/06/17 08:54 Ur Leukocyte Esterase Trace (NEGATIVE) 04/06/17 08:54 Urine RBC None /hpf (0-3) 04/06/17 08:54 Urine WBC 1 /hpf (3-5) 04/06/17 08:54 Ur Epithelial Cells Rare /hpf (FEW) 04/06/17 08:54 Urine Mucus Rare 04/06/17 08:54 RPR Titer Nonreactive (NONREACTIVE) 04/06/17 08:00 labs noted Assessment: 04/08/17 14:50 Withdrawal sx. Plan: Continue detox
[2017-04-08] MEDS: diphenhydrAMINE HCL 50 MG CAPSULE PO PRN (22:20)
[2017-04-08] MEDS: THIAMINE HCL 100 MG TABLET (FP) PO SCH (22:20)
[2017-04-09] MEDS ORDERED: chlordiazePOXIDE HCL 10 MG CAPSULE PO SCH (05:00)
[2017-04-09 06:16] VITALS: BP 104/73; PULSE 81; TEMP 97.3
--- NOTE | 2017-04-09 11:58 | DS ---
[facility] Detox Discharge Summary Admission Date: 04/05/17 Discharge Date: 04/09/17 - History Present History: Alcohol Dependence, Cocaine Dependence Additional Comments: DETOX COMPLETED PT D/C'D TODAY PER PROTOCOL. Pertinent Past History: WEIGHT LOSS - Physical Exam Results Vital Signs: Vital Signs Temperature 97.3 F L 04/09/17 06:16 Pulse Rate 81 04/09/17 06:16 Respiratory Rate 18 04/09/17 06:16 Blood Pressure 104/73 04/09/17 06:16 O2 Sat by Pulse Oximetry (%) Pertinent Admission Physical Exam Findings: WITHDRAWAL SX Laboratory Last Values WBC 4.1 K/mm3 (4.0-10.0) 04/06/17 08:00 RBC 4.29 M/mm3 (4.00-5.60) 04/06/17 08:00 Hgb 14.4 GM/dL (11.7-16.9) 04/06/17 08:00 Hct 42.6 % (35.4-49) 04/06/17 08:00 MCV 99.4 fl (80-96) H 04/06/17 08:00 MCH 33.7 pg (25.7-33.7) 04/06/17 08:00 MCHC 33.9 g/dl (32.0-35.9) 04/06/17 08:00 RDW 13.5 % (11.9-15.9) 04/06/17 08:00 Plt Count 162 K/MM3 (134-434) 04/06/17 08:00 MPV 8.7 fl (7.5-11.1) 04/06/17 08:00 Sodium 140 mmol/L (136-145) 04/06/17 08:00 Potassium 3.9 mmol/L (3.5-5.1) 04/06/17 08:00 Chloride 103 mmol/L (98-107) 04/06/17 08:00 Carbon Dioxide 27 mmol/L (21-32) 04/06/17 08:00 Anion Gap 10 (8-16) 04/06/17 08:00 BUN 11 mg/dL (7-18) 04/06/17 08:00 Creatinine 1.0 mg/dL (0.7-1.3) 04/06/17 08:00 Creat Clearance w eGFR > 60 (>60) 04/06/17 08:00 Random Glucose 76 mg/dL (74-106) 04/06/17 08:00 Calcium 9.1 mg/dL (8.5-10.1) 04/06/17 08:00 Total Bilirubin 0.8 mg/dL (0.2-1.0) D 04/06/17 08:00 AST 29 U/L (15-37) 04/06/17 08:00 ALT 27 U/L (12-78) 04/06/17 08:00 Alkaline Phosphatase 53 U/L (45-117) 04/06/17 08:00 Total Protein 7.1 g/dl (6.4-8.2) 04/06/17 08:00 Albumin 4.0 g/dl (3.4-5.0) 04/06/17 08:00 Urine Color Ltyellow 04/06/17 08:54 Urine Appearance Clear 04/06/17 08:54 Urine pH 6.0 (5.0-8.0) 04/06/17 08:54 Ur Specific [place] 1.015 (1.005-1.025) 04/06/17 08:54 Urine Protein Negative (NEGATIVE) 04/06/17 08:54 Urine Glucose (UA) Negative (NEGATIVE) 04/06/17 08:54 Urine Ketones Negative (NEGATIVE) 04/06/17 08:54 Urine Blood Negative (NEGATIVE) 04/06/17 08:54 Urine Nitrite Negative (NEGATIVE) 04/06/17 08:54 Urine Bilirubin Negative (NEGATIVE) 04/06/17 08:54 Urine Urobilinogen Negative mg/dL (0.2-1.0) 04/06/17 08:54 Ur Leukocyte Esterase Trace (NEGATIVE) 04/06/17 08:54 Urine RBC None /hpf (0-3) 04/06/17 08:54 Urine WBC 1 /hpf (3-5) 04/06/17 08:54 Ur Epithelial Cells Rare /hpf (FEW) 04/06/17 08:54 Urine Mucus Rare 04/06/17 08:54 RPR Titer Nonreactive (NONREACTIVE) 04/06/17 08:00 - Treatment Hospital Course: Detox Protocol Followed, Detoxed Safely, Responded well, Discharged Condition Good - Medication Discharge Medications: Ambulatory Orders Quetiapine Fumarate [Seroquel] 100 mg PO HS #30 tablet 02/13/17 - Diagnosis (1) Alcohol dependence with uncomplicated withdrawal Status: Acute (2) Cocaine dependence Status: Acute Qualifiers: Substance use status: uncomplicated Qualified Code(s): F14.20 - Cocaine dependence, uncomplicated (3) Substance induced mood disorder Status: Acute (4) Weight loss Status: Acute (5) Nicotine dependence Status: Acute Qualifiers: Nicotine product type: cigarettes Substance use status: in withdrawal Qualified Code(s): F17.213 - Nicotine dependence, cigarettes, with withdrawal - AMA Did Patient Leave Against Medical Advice: No
== END 2017-04-09 08:37 | disposition home or self-care (01) | DRG 774 ==
LOC: YASAS 23:27 → Y3N 23:51
PROVIDERS: ADMIT Internal Medicine; ATTEND Internal Medicine
PROC: HZ2ZZZZ Detoxification Services for Substance Abuse Treatment (ICD-10-PCS; principal; 2017-04-09)
DX: F10.230 Alcohol dependence with withdrawal, uncomplicated (principal); F14.20 Cocaine dependence, uncomplicated; F17.210 Nicotine dependence, cigarettes, uncomplicated; F32.9 Major depressive disorder, single episode, unspecified; F19.24 Other psychoactive substance dependence with psychoactive substance-induced mood disorder; G47.00 Insomnia, unspecified; R63.4 Abnormal weight loss; Z68.23 Body mass index [BMI] 23.0-23.9, adult
CPT/HCPCS: 36415; 80053; 81003; 81015; 85027; 86593; 93005; 93010

== ENCOUNTER 2021-06-11 22:06 | Inpatient (IN) | payer OTHER ==
[2021-06-11] MEDS ORDERED: MENTHOL/PHENOL 1 EACH UD MM PRN (23:43)
[2021-06-11] MEDS ORDERED: NICOTINE POLACRILEX 2 MG GUM BUC PRN (23:43)
[2021-06-11] MEDS ORDERED: ONDANSETRON *ODT* 4 MG TABLET SL PRN (23:43)
[2021-06-11] MEDS ORDERED: ACETAMINOPHEN 325 MG TABLET (FP) PO PRN ×2 (23:43)
[2021-06-11] MEDS ORDERED: MAG HYDROX/AL HYDROX/SIMETH 30 ML UNIT-DOSE CUP PO PRN (23:43)
[2021-06-11] MEDS ORDERED: BISMUTH SUBSALICYLATE 524 MG/30 ML PO PRN (23:43)
[2021-06-11] MEDS ORDERED: MAGNESIUM CITRATE 300 ML BOTTLE PO PRN (23:43)
[2021-06-11] MEDS ORDERED: METHOCARBAMOL 500 MG TABLET PO PRN (23:43)
[2021-06-11] MEDS ORDERED: MAGNESIUM HYDROX 2400MG/30ML ORAL SUSPENSION 30 ML CUP PO PRN (23:43)
[2021-06-12 03:02] VITALS: BMI 24.6
[2021-06-12] MEDS ORDERED: diazePAM 5 MG TABLET PO PRN (09:35)
[2021-06-12] MEDS: PRENATAL VITAMINS W/ FOLIC ACID TABLET (FP) PO SCH (10:08)
[2021-06-12] MEDS: NICOTINE 21 MG/24 HOURS TOPICAL PATCH TD SCH (10:09)
[2021-06-12 10:28] LABS: HEMATOCRIT 42.5 % (35.4-49); HEMOGLOBIN 14.5 GM/dL (11.7-16.9); MCH 34.4 pg (25.7-33.7); MEAN CELL VOLUME 101.1 fl (80-96); MEAN PLT VOLUME 8.5 fl (7.5-11.1); PLATELET COUNT 215 10^3/uL (134-434); RBC 4.21 M/mm3 (4.00-5.60); RDW 13.5 % (11.9-15.9); WHITE BLOOD COUNT 4.4 K/mm3 (4.0-10.0)
[2021-06-12] MEDS: diazePAM 5 MG TABLET PO SCH ×3 (10:35→22:05)
[2021-06-12 10:38] LABS: ALBUMIN 3.5 g/dl (3.4-5.0); BLOOD UREA NITROGEN 20.6 mg/dL (7-18); CALCIUM 8.8 mg/dL (8.5-10.1)
[2021-06-12 10:41] LABS: CREATININE 1.1 mg/dL (0.55-1.3)
[2021-06-12 10:43] LABS: BILIRUBIN,TOTAL 0.5 mg/dL (0.2-1); TOT PROT 6.6 g/dl (6.4-8.2)
[2021-06-12] MEDS ORDERED: MELATONIN 5 MG TABLETS PO SCH (22:00)
[2021-06-12] MEDS ORDERED: THIAMINE HCL 100 MG TABLET (FP) PO SCH (22:00)
[2021-06-12] MEDS ORDERED: QUEtiapine FUMARATE 50 MG TABLET PO SCH (22:00)
[2021-06-13] MEDS: diazePAM 5 MG TABLET PO SCH ×2 (05:24→10:28)
[2021-06-13] MEDS: NICOTINE 21 MG/24 HOURS TOPICAL PATCH TD SCH (10:28)
[2021-06-13] MEDS: PRENATAL VITAMINS W/ FOLIC ACID TABLET (FP) PO SCH (10:28)
[2021-06-13] MEDS ORDERED: NICOTINE 10 MG CARTRIDGE (INHALER) IH SCH (17:45)
[2021-06-13 18:23] VITALS: BP 127/81; PULSE 83; TEMP 97.2
[2021-06-14] MEDS ORDERED: diazePAM 5 MG TABLET PO SCH (06:00)
[2021-06-15] MEDS ORDERED: diazePAM 5 MG TABLET PO SCH (06:00)
[2021-06-16] MEDS ORDERED: diazePAM 5 MG TABLET PO ONE (06:00)
== END 2021-06-13 17:49 | disposition left against medical advice (07) | DRG 770 ==
LOC: YASAS 22:06 → Y3N 23:24
PROVIDERS: ADMIT Allergy & Immunology; ATTEND Allergy & Immunology
PROC: HZ2ZZZZ Detoxification Services for Substance Abuse Treatment (ICD-10-PCS; principal; 2021-06-11)
DX: F10.230 Alcohol dependence with withdrawal, uncomplicated (principal); F14.20 Cocaine dependence, uncomplicated; F12.10 Cannabis abuse, uncomplicated; F17.210 Nicotine dependence, cigarettes, uncomplicated; F19.282 Other psychoactive substance dependence with psychoactive substance-induced sleep disorder; F19.24 Other psychoactive substance dependence with psychoactive substance-induced mood disorder; F32.9 Major depressive disorder, single episode, unspecified; Z88.6 Allergy status to analgesic agent
CPT/HCPCS: 36415; 80053; 85027; 86780; 93005; 93010; C9803; U0003; U0005

== ENCOUNTER 2021-10-13 10:05 | Inpatient (IN) | payer OTHER ==
[2021-10-13] MEDS ORDERED: ONDANSETRON *ODT* 4 MG TABLET SL PRN (10:34)
[2021-10-13] MEDS ORDERED: METHOCARBAMOL 500 MG TABLET PO PRN (10:34)
[2021-10-13] MEDS ORDERED: MENTHOL/PHENOL 1 EACH UD MM PRN (10:34)
[2021-10-13] MEDS ORDERED: ACETAMINOPHEN 325 MG TABLET (FP) PO PRN ×2 (10:34)
[2021-10-13] MEDS ORDERED: MAGNESIUM CITRATE 300 ML BOTTLE PO PRN (10:34)
[2021-10-13] MEDS ORDERED: MAGNESIUM HYDROX 2400MG/30ML ORAL SUSPENSION 30 ML CUP PO PRN (10:34)
[2021-10-13] MEDS ORDERED: chlordiazePOXIDE HCL 25 MG CAPSULE PO PRN (10:34)
[2021-10-13] MEDS ORDERED: NICOTINE 10 MG CARTRIDGE (INHALER) IH PRN (10:34)
[2021-10-13] MEDS ORDERED: MAG HYDROX/AL HYDROX/SIMETH 30 ML UNIT-DOSE CUP PO PRN (10:34)
[2021-10-13 11:19] VITALS: BMI 26.7
[2021-10-13] MEDS ORDERED: chlordiazePOXIDE HCL 25 MG CAPSULE ONE (12:01)
[2021-10-13] MEDS: hydrOXYzine PAMOATE 25 MG CAPSULE (FP) PO SCH ×3 (14:02→22:27)
[2021-10-13] MEDS: NICOTINE 21 MG/24 HOURS TOPICAL PATCH TD SCH (14:02)
[2021-10-13] MEDS: PRENATAL VITAMINS W/ FOLIC ACID TABLET (FP) PO SCH (14:02)
[2021-10-13 14:10] LABS: HEMATOCRIT 43.9 % (35.4-49); HEMOGLOBIN 14.4 GM/dL (11.7-16.9); MCH 33.1 pg (25.7-33.7); MCHC 32.8 g/dl (32.0-35.9); MEAN CELL VOLUME 100.9 fl (80-96); MEAN PLT VOLUME 8.7 fl (7.5-11.1); PLATELET COUNT 239 10^3/uL (134-434); RBC 4.35 M/mm3 (4.00-5.60); RDW 13.2 % (11.9-15.9); WHITE BLOOD COUNT 4.3 K/mm3 (4.0-10.0)
[2021-10-13 14:42] LABS: ALBUMIN 4.1 g/dl (3.4-5.0); BLOOD UREA NITROGEN 14.2 mg/dL (7-18); CALCIUM 9.6 mg/dL (8.5-10.1)
[2021-10-13 14:45] LABS: CREATININE 1.2 mg/dL (0.55-1.3)
[2021-10-13 14:46] LABS: BILIRUBIN,TOTAL 0.3 mg/dL (0.2-1)
[2021-10-13 14:47] LABS: TOT PROT 7.5 g/dl (6.4-8.2)
[2021-10-13] MEDS: chlordiazePOXIDE HCL 25 MG CAPSULE PO SCH ×2 (17:51→22:28)
[2021-10-13] MEDS: MELATONIN 5 MG TABLETS PO SCH (22:27)
[2021-10-13] MEDS: THIAMINE HCL 100 MG TABLET (FP) PO SCH (22:27)
[2021-10-14] MEDS: chlordiazePOXIDE HCL 25 MG CAPSULE PO SCH ×4 (05:35→22:06)
[2021-10-14] MEDS: hydrOXYzine PAMOATE 25 MG CAPSULE (FP) PO SCH ×5 (05:35→22:06)
[2021-10-14] MEDS: PRENATAL VITAMINS W/ FOLIC ACID TABLET (FP) PO SCH (10:29)
[2021-10-14] MEDS: NICOTINE 21 MG/24 HOURS TOPICAL PATCH TD SCH (10:45)
[2021-10-14] MEDS: MELATONIN 5 MG TABLETS PO SCH (22:06)
[2021-10-14] MEDS: THIAMINE HCL 100 MG TABLET (FP) PO SCH (22:06)
[2021-10-15] MEDS: chlordiazePOXIDE HCL 25 MG CAPSULE PO SCH ×2 (05:56→10:33)
[2021-10-15] MEDS: hydrOXYzine PAMOATE 25 MG CAPSULE (FP) PO SCH ×3 (05:56→14:18)
[2021-10-15] MEDS: NICOTINE 21 MG/24 HOURS TOPICAL PATCH TD SCH (10:31)
[2021-10-15] MEDS: PRENATAL VITAMINS W/ FOLIC ACID TABLET (FP) PO SCH (10:33)
[2021-10-15 13:09] VITALS: BP 119/75; PULSE 82; TEMP 97.5
[2021-10-16] MEDS ORDERED: chlordiazePOXIDE HCL 10 MG CAPSULE PO PRN
[2021-10-16] MEDS ORDERED: chlordiazePOXIDE HCL 10 MG CAPSULE PO SCH (05:00)
[2021-10-17] MEDS ORDERED: chlordiazePOXIDE HCL 10 MG CAPSULE PO SCH (05:00)
[2021-10-18] MEDS ORDERED: chlordiazePOXIDE HCL 10 MG CAPSULE PO ONE (05:00)
== END 2021-10-15 14:49 | disposition home or self-care (01) | DRG 774 ==
LOC: YASAS 10:05 → Y3N 12:42
PROVIDERS: ADMIT Allergy & Immunology; ATTEND Allergy & Immunology
PROC: HZ2ZZZZ Detoxification Services for Substance Abuse Treatment (ICD-10-PCS; principal; 2021-10-13)
DX: F10.230 Alcohol dependence with withdrawal, uncomplicated (principal); F14.20 Cocaine dependence, uncomplicated; F12.20 Cannabis dependence, uncomplicated; F17.210 Nicotine dependence, cigarettes, uncomplicated; F19.282 Other psychoactive substance dependence with psychoactive substance-induced sleep disorder; F19.24 Other psychoactive substance dependence with psychoactive substance-induced mood disorder; F32.A Depression, unspecified; G47.00 Insomnia, unspecified; I10 Essential (primary) hypertension; K21.9 Gastro-esophageal reflux disease without esophagitis; R63.4 Abnormal weight loss; Z68.26 Body mass index [BMI] 26.0-26.9, adult; Z88.6 Allergy status to analgesic agent
CPT/HCPCS: 36415; 80053; 85027; 86780; C9803; U0003; U0005

== ENCOUNTER 2022-08-22 17:51 | Inpatient (IN) | payer OTHER ==
[2022-08-22] MEDS ORDERED: NICOTINE 10 MG CARTRIDGE (INHALER) IH PRN (21:32)
[2022-08-22] MEDS ORDERED: MELATONIN 5 MG TABLETS PO PRN (21:32)
[2022-08-22] MEDS ORDERED: P-EPHED 60MG/TRIPROLIDI 2.5MG TABLET PO PRN (21:32)
[2022-08-22] MEDS ORDERED: MAG HYDROX/AL HYDROX/SIMETH 30 ML UNIT-DOSE CUP PO PRN (21:32)
[2022-08-22] MEDS ORDERED: LOPERAMIDE HCL 2 MG CAPSULE PO PRN (21:32)
[2022-08-22] MEDS ORDERED: METHOCARBAMOL 500 MG TABLET PO PRN (21:32)
[2022-08-22] MEDS ORDERED: MAGNESIUM HYDROX 2400MG/30ML ORAL SUSPENSION 30 ML CUP PO PRN (21:32)
[2022-08-22] MEDS ORDERED: ONDANSETRON *ODT* 4 MG TABLET SL PRN (21:32)
[2022-08-22] MEDS ORDERED: DICYCLOMINE HCL 10 MG CAPSULE PO PRN (21:32)
[2022-08-22] MEDS ORDERED: guaiFENesin 200 MG/10 ML 10 ML UNIT-DOSE CUPS PO PRN (21:32)
[2022-08-22] MEDS ORDERED: BENZOCAINE/MENTHOL (CHLORASEPTIC ) LOZENGE MM PRN (21:32)
[2022-08-22] MEDS ORDERED: ACETAMINOPHEN 325 MG TABLET (FP) PO PRN ×2 (21:32)
[2022-08-22] MEDS ORDERED: NICOTINE POLACRILEX 2 MG GUM BUC PRN (21:32)
[2022-08-22] MEDS ORDERED: POLYETHYLENE GLYCOL (HEALTHYLAX) 3350 17 GM PACKET PO PRN (21:32)
[2022-08-22] MEDS ORDERED: diazePAM 5 MG TABLET PO PRN (21:34)
[2022-08-22] MEDS ORDERED: THIAMINE HCL 100 MG TABLET (FP) PO SCH (22:00)
[2022-08-22] MEDS ORDERED: diazePAM 5 MG TABLET PO SCH (23:00)
[2022-08-23 01:11] VITALS: BP 124/80; PULSE 102; RESP 18; TEMP 97.1; BMI 23.7
[2022-08-23] MEDS ORDERED: PRENATAL VITAMINS W/ FOLIC ACID TABLET (FP) PO SCH (10:00)
[2022-08-24] MEDS ORDERED: diazePAM 5 MG TABLET PO SCH (06:00)
[2022-08-25] MEDS ORDERED: diazePAM 5 MG TABLET PO SCH (06:00)
[2022-08-26] MEDS ORDERED: diazePAM 5 MG TABLET PO ONE (06:00)
== END 2022-08-23 01:01 | disposition left against medical advice (07) | DRG 770 ==
LOC: YASAS 17:51 → Y3N 22:04
PROVIDERS: ADMIT Surgery; ATTEND Surgery
PROC: HZ2ZZZZ Detoxification Services for Substance Abuse Treatment (ICD-10-PCS; principal; 2022-08-22)
DX: F10.230 Alcohol dependence with withdrawal, uncomplicated (principal); F14.20 Cocaine dependence, uncomplicated; F12.20 Cannabis dependence, uncomplicated; F17.210 Nicotine dependence, cigarettes, uncomplicated; M54.40 Lumbago with sciatica, unspecified side; Z88.6 Allergy status to analgesic agent
CPT/HCPCS: C9803-CS; U0003; U0005

== ENCOUNTER 2023-11-30 08:59 | Inpatient (IN) | payer OTHER ==
[2023-11-30 09:52] VITALS: BMI 23.0
[2023-11-30] MEDS ORDERED: MAGNESIUM HYDROX 2400MG/30ML ORAL SUSPENSION 30 ML CUP PO PRN (10:33)
[2023-11-30] MEDS ORDERED: guaiFENesin 600 MG TABLET.ER (FP) PO PRN (10:33)
[2023-11-30] MEDS ORDERED: BISMUTH SUBSALICYLATE 524 MG/30 ML PO PRN (10:33)
[2023-11-30] MEDS ORDERED: chlordiazePOXIDE HCL 25 MG CAPSULE PO PRN (10:33)
[2023-11-30] MEDS ORDERED: NALOXONE HCL (KLOXXADO) 8 MG SPRAY NS PRN (10:33)
[2023-11-30] MEDS ORDERED: BENZONATATE 200 MG CAPSULE PO PRN (10:33)
[2023-11-30] MEDS ORDERED: POLYETHYLENE GLYCOL (HEALTHYLAX) 3350 17 GM PACKET PO PRN (10:33)
[2023-11-30] MEDS ORDERED: NICOTINE POLACRILEX 2 MG LOZENGE BC PRN (10:33)
[2023-11-30] MEDS ORDERED: MAG HYDROX/AL HYDROX/SIMETH 30 ML UNIT-DOSE CUP PO PRN (10:33)
[2023-11-30] MEDS ORDERED: ONDANSETRON *ODT* 4 MG TABLET SL PRN (10:33)
[2023-11-30] MEDS ORDERED: LOPERAMIDE HCL 2 MG CAPSULE PO PRN (10:33)
[2023-11-30] MEDS ORDERED: NALOXONE HCL 0.4 MG/ML VIAL IM PRN (10:33)
[2023-11-30] MEDS ORDERED: DICYCLOMINE HCL 10 MG CAPSULE PO PRN (10:33)
[2023-11-30] MEDS ORDERED: BENZOCAINE/MENTHOL (CHLORASEPTIC ) LOZENGE MM PRN (10:33)
[2023-11-30] MEDS: ACETAMINOPHEN 325 MG TABLET (FP) PO PRN (11:49)
[2023-11-30] MEDS: chlordiazePOXIDE HCL 25 MG CAPSULE PO SCH (17:36)
[2023-11-30] MEDS: THIAMINE 100 MG TABLET PO SCH (22:27)
[2023-11-30] MEDS: METHOCARBAMOL 500 MG TABLET PO PRN (22:27)
[2023-11-30] MEDS: MELATONIN 5 MG TABLETS PO SCH (22:27)
[2023-12-01] MEDS: NICOTINE 21 MG/24 HOURS TOPICAL PATCH TD SCH (10:08)
[2023-12-01] MEDS: PRENATAL VITAMINS W/ FOLIC ACID TABLET (FP) PO SCH (10:08)
[2023-12-01] MEDS: hydrOXYzine PAMOATE 25 MG CAPSULE (FP) PO PRN (10:10)
[2023-12-01 10:52] LABS: HEMATOCRIT 41.7 % (35.4-49); MCH 34.8 pg (25.7-33.7); MCHC 33.5 g/dl (32.0-35.9); MEAN CELL VOLUME 103.9 fl (80-96); MEAN PLT VOLUME 8.6 fl (7.5-11.1); PLATELET COUNT 209 10^3/uL (134-434); RBC 4.02 M/mm3 (4.00-5.60); RDW 14.6 % (11.9-15.9); WHITE BLOOD COUNT 3.4 K/mm3 (4.0-10.0)
[2023-12-01 11:00] LABS: CHLORIDE 110 mmol/L (98-107); POTASSIUM 4.1 mmol/L (3.5-5.1); SODIUM 144 mmol/L (136-145)
[2023-12-01 11:04] LABS: BLOOD UREA NITROGEN 12.8 mg/dL (7-18); CALCIUM 8.8 mg/dL (8.5-10.1)
[2023-12-01 11:05] LABS: ALBUMIN 3.2 g/dl (3.4-5.0); ANION GAP 5 mmol/L (4-13); CO2 29 mmol/L (21-32); GLUCOSE,RANDOM 111 mg/dL (74-106)
[2023-12-01 11:07] LABS: SGOT/AST 17 U/L (15-37); SGPT/ALT 23 U/L (13-61)
[2023-12-01 11:09] LABS: BILIRUBIN,TOTAL 0.3 mg/dL (0.2-1); TOT PROT 6.4 g/dl (6.4-8.2)
[2023-12-01 11:10] LABS: ALK PHOS 50 U/L (45-117)
[2023-12-01] MEDS ORDERED: FLU VACCINE (FLULAVAL) PF 60 MCG/0.5 ML SYRINGE 2023-2024 IM ONE (12:00)
[2023-12-01] MEDS: EMTRICITABINE/TENOFOV ALAFENAM (DESCOVY) TABLET PO SCH (12:55)
[2023-12-01 13:09] VITALS: BP 105/68; PULSE 88; RESP 18; TEMP 97.3
[2023-12-01] MEDS: FLU VACCINE (FLULAVAL) PF 60 MCG/0.5 ML SYRINGE 2023-2024 IM ONE (13:19)
[2023-12-01] MEDS ORDERED: LACTULOSE 20 GM/30 ML UDC (FOR ORAL USE ONLY) PO SCH (18:00)
[2023-12-02] MEDS ORDERED: chlordiazePOXIDE HCL 25 MG CAPSULE PO SCH (05:00)
[2023-12-03] MEDS ORDERED: chlordiazePOXIDE HCL 10 MG CAPSULE PO PRN
[2023-12-03] MEDS ORDERED: chlordiazePOXIDE HCL 10 MG CAPSULE PO SCH (05:00)
[2023-12-04] MEDS ORDERED: chlordiazePOXIDE HCL 10 MG CAPSULE PO SCH (05:00)
[2023-12-05] MEDS ORDERED: chlordiazePOXIDE HCL 10 MG CAPSULE PO ONE (05:00)
== END 2023-12-01 14:55 | disposition short-term general hospital (02) | DRG 774 ==
LOC: YASAS 08:59 → Y6N 10:56
PROVIDERS: ADMIT Allergy & Immunology; ATTEND Surgery
PROC: HZ2ZZZZ Detoxification Services for Substance Abuse Treatment (ICD-10-PCS; principal; 2023-11-30)
DX: F10.230 Alcohol dependence with withdrawal, uncomplicated (principal); F14.20 Cocaine dependence, uncomplicated; F17.213 Nicotine dependence, cigarettes, with withdrawal; F20.0 Paranoid schizophrenia; F41.8 Other specified anxiety disorders; M54.42 Lumbago with sciatica, left side; G89.29 Other chronic pain; Z20.6 Contact with and (suspected) exposure to human immunodeficiency virus [HIV]; Z91.410 Personal history of adult physical and sexual abuse; Z63.0 Problems in relationship with spouse or partner; Z88.6 Allergy status to analgesic agent
CPT/HCPCS: 36415; 80053; 80307; 82140; 85027; 86780; 90686; 93005; 93010; G0008

== ENCOUNTER 2024-07-08 09:22 | Inpatient (IN) | payer OTHER ==
[2024-07-08 09:57] VITALS: BMI 23.1
[2024-07-08] MEDS ORDERED: POLYETHYLENE GLYCOL (HEALTHYLAX) 3350 17 GM PACKET PO PRN (10:06)
[2024-07-08] MEDS ORDERED: guaiFENesin 600 MG TABLET.ER (FP) PO PRN (10:06)
[2024-07-08] MEDS ORDERED: P-EPHED 60MG/TRIPROLIDI 2.5MG TABLET PO PRN (10:06)
[2024-07-08] MEDS ORDERED: MAGNESIUM HYDROX 2400MG/30ML ORAL SUSPENSION 30 ML CUP PO PRN (10:06)
[2024-07-08] MEDS ORDERED: hydrOXYzine PAMOATE 25 MG CAPSULE (FP) PO PRN (10:06)
[2024-07-08] MEDS ORDERED: MAG HYDROX/AL HYDROX/SIMETH 30 ML UNIT-DOSE CUP PO PRN (10:06)
[2024-07-08] MEDS ORDERED: NALOXONE (NYS OPIOID OVERDOSE PROGRAM) 4 MG/0.1 ML SPRAY NS PRN (10:06)
[2024-07-08] MEDS ORDERED: BENZONATATE 200 MG CAPSULE PO PRN (10:06)
[2024-07-08] MEDS ORDERED: ACETAMINOPHEN 325 MG TABLET (FP) PO PRN (10:06)
[2024-07-08] MEDS ORDERED: BENZOCAINE/MENTHOL (CHLORASEPTIC ) LOZENGE MM PRN (10:06)
[2024-07-08] MEDS ORDERED: NICOTINE POLACRILEX 2 MG LOZENGE BC PRN (10:06)
[2024-07-08] MEDS ORDERED: LOPERAMIDE HCL 2 MG CAPSULE PO PRN (10:06)
[2024-07-08] MEDS ORDERED: NICOTINE POLACRILEX 2 MG GUM BUC PRN (10:06)
[2024-07-08] MEDS ORDERED: LORATADINE 10 MG TABLET PO PRN (10:25)
[2024-07-08] MEDS ORDERED: FLUTICASONE PROP 0.05% 16 GM NASAL SPRAY NS PRN (10:25)
[2024-07-08] MEDS: CYCLOBENZAPRINE HCL 10 MG TABLET (FP) PO SCH (14:02)
[2024-07-08] MEDS: QUEtiapine FUMARATE 100 MG TABLET (FP) PO SCH (21:46)
[2024-07-08] MEDS: THIAMINE 100 MG TABLET PO SCH (21:47)
[2024-07-08] MEDS: MELATONIN 5 MG TABLETS PO SCH (21:48)
[2024-07-09] MEDS: PRENATAL VITAMINS W/ FOLIC ACID TABLET (FP) PO SCH (10:04)
[2024-07-09 15:18] VITALS: RESP 18
[2024-07-10] MEDS: TOLNAFTATE 1% POWDER 45 GM POW TP SCH (12:16)
[2024-07-10] MEDS: BACLOFEN 10 MG TABLET (FP) PO SCH (13:49)
[2024-07-11] MEDS: AMMONIUM LACTATE 12% CREAM 140 GM TUBE TP PRN (06:31)
[2024-07-11 06:39] VITALS: TEMP 97.5
[2024-07-11] MEDS: HYDROCORTISONE 1% TOPICAL CREAM 30 GM TUBE TP PRN (21:34)
[2024-07-12 06:58] VITALS: BP 121/75; PULSE 76
== END 2024-07-12 13:12 | disposition left against medical advice (07) | DRG 770 ==
LOC: YASAS 09:22 → Y3NR 10:57 → Y5N 07-09 10:41
PROVIDERS: ADMIT Allergy & Immunology; ATTEND Psychiatry & Neurology Pain Medicine
PROC: HZ42ZZZ Group Counseling for Substance Abuse Treatment, Cognitive-Behavioral (ICD-10-PCS; principal; 2024-07-08)
DX: F14.20 Cocaine dependence, uncomplicated (principal); F10.20 Alcohol dependence, uncomplicated; F12.20 Cannabis dependence, uncomplicated; F17.210 Nicotine dependence, cigarettes, uncomplicated; G47.00 Insomnia, unspecified; M54.40 Lumbago with sciatica, unspecified side; B35.3 Tinea pedis; Z56.0 Unemployment, unspecified; Z59.00 Homelessness unspecified
CPT/HCPCS: 36415; 80305; 80307; 87811; J0475